=== PATIENT | male | born 1985 | race Caucasian/White ===

== ENCOUNTER 2018-11-29 09:33 | Emergency (ER) | payer SELFPAY ==
--- NOTE | 2018-11-29 10:09 | UC ---
Skin Complaint HPI - HPI Summary HPI Summary: 33 y/o male presents to the urgent care c/o a rash w/ itchiness all over his body, for the past 2 weeks. Pt reports he is visiting from [facility]. He staes he changed softener about 2 weeks ago and he thinks that is what caused his rash. He was taken Claritin PO for few days and stopped using the new Softerner and rash was improving. However, He is now visiting his parents and he washed his clothes w/ their Softerne and rash worsen w/ a lot of itchiness. Pt also c/o os sore throat w/ white spots in his tonsils for thepast 2 days. Pain is 2/10. Pt denies fever, difficultly breathing, SOB, chest pain, abdominal pain, N/V/d. - History of Current Complaint Chief Complaint: UCRash Time Seen by Provider: 11/29/18 10:08 Stated Complaint: RASH Hx Obtained From: Patient Onset/Duration: Gradual Onset, Lasting Weeks - 2 weeks, Still Present, Worse Since - 3 days w/ itchiness and a sore throat Skin Exposure Onset/Duration: Weeks Ago - 2 weeks pt change his detergent and diffuse rash started Timing: Constant Onset Severity: Mild Current Severity: Moderate Pain Intensity: 2 - sore throat Pain Scale Used: 0-10 Numeric Location: Diffuse - B/l arms arms and legs, lower back and pelvis and neck Character: Pruritus, Hives, Redness Aggravating Factor(s): Touch Alleviating Factor(s): Antihistamines Associated Signs & Symptoms: Positive: Rash - hives w/ itchiness in differents parts of his body. Negative: Fever, Chills, Drainage, Tenderness Related History: Possible Reaction to: Environmental Exposure - Allergy/Home Medications Allergies/Adverse Reactions: Allergies Allergy/AdvReac Type Severity Reaction Status Date / Time mint Allergy Rash Verified 11/29/18 09:49 Home Medications: Home Medications Loratadine [Claritin] 1 tab PO DAILY 11/29/18 [History Confirmed 11/29/18] lamoTRIgine [Lamictal] 200 mg PO DAILY 11/29/18 [History Confirmed 11/29/18] PMH/Surg Hx/FS Hx/Imm Hx Previously Healthy: Yes Psychological History: Bipolar Disorder - Surgical History Surgical History: None - Family History Known Family History: Positive: Hypertension, Diabetes - Social History Occupation: Employed Full-time Lives: With Family Alcohol Use: Rare Substance Use Type: None Smoking Status (MU): Never Smoked Tobacco Review of Systems All Other Systems Reviewed And Are Negative: Yes Constitutional: Positive: Negative Skin: Positive: Rash - scattered itchy hives on b/l arms and legs, lower back and pelvis and neck for the past 2 weeks Eyes: Positive: Negative ENT: Positive: Sore Throat - for the past 3 days Respiratory: Positive: Negative Cardiovascular: Positive: Negative Gastrointestinal: Positive: Negative Genitourinary: Positive: Negative Motor: Positive: Negative Neurovascular: Positive: Negative Musculoskeletal: Positive: Negative Neurological: Positive: Negative Psychological: Positive: Negative Is Patient Immunocompromised?: No Physical Exam - Summary Physical Exam Summary: Vital Signs Reviewed: Yes General: well appearing, well nourished male in no acute apparent pain distress , sitting comfortably on examining table Eye Exam: Normal Eyes: Positive: Conjunctiva Clear - PERRLA< EOMI, fundi grossly normal ENT: Positive: Normal ENT inspection, Hearing grossly normal, Pharynx w/ erythema and b/l tonsil enlargement w/ exudate, TMs normal Neck: Positive: Supple, Nontender, No Lymphadenopathy Respiratory: Positive: Chest non-tender, Lungs clear, Normal breath sounds, No respiratory distress Cardiovascular: Positive: RRR, No Murmur, Pulses Normal, Brisk Capillary Refill Abdomen Description: Positive: Nontender, No Organomegaly, Soft. Negative: CVA Tenderness (R), CVA Tenderness (L) Bowel Sounds: Positive: Present Musculoskeletal: Positive: Strength Intact, ROM Intact, No Edema Neurological: Positive: Alert, Muscle Tone Normal Psychological Exam: Normal Skin: Positive:Positive erythematous wheels and hives on B/l legs. b/l arms, lower back and pelvis and neck. w/ signs of excoriation. non tender to palpation, no swelling, no drainage observed. Triage Information Reviewed: Yes Vital Signs: Initial Vital Signs Temp 97.8 F 11/29/18 09:44 Pulse 66 11/29/18 09:44 Resp 11/29/18 09:44 BP 113/67 11/29/18 09:44 Pulse Ox 100 11/29/18 09:44 Course/Dx - Course Course Of Treatment: 33 y/o male presents to the urgent care c/o a rash w/ itchiness all over his body, for the past 2 weeks. Pt reports he is visiting from [facility]. He staes he changed softener about 2 weeks ago and he thinks that is what caused his rash. He was taken Claritin PO for few days and stopped using the new Softerner and rash was improving. However, He is now visiting his parents and he washed his clothes w/ their Softerne and rash worsen w/ a lot of itchiness. Pt also c/o os sore throat w/ white spots in his tonsils for the past 2 days. Pain is 2/10. Pt denies fever, difficultly breathing, SOB, chest pain, abdominal pain, N/V/d. Hx obtained. Pt w/ Positive erythematous wheels and hives on B/l legs. b/l arms, lower back and pelvis and neck. w/ signs of excoriation. non tender to palpation, no swelling, no drainage observed and also pharyngitis on examination. Rapid strep ordered: negative. Pt w/ contact dermatitis and viral pharyngitis. Pt Rx Prednisone PO taper dose, triamcinolone topical lotion, Benadryl PO as directed below to alleviate symptoms. D/C instructions explained. Pt advised if not improvement of symptoms to f/u w/ his PCP or wind turbine performance engineer DR Agarwal for further evaluation and treatment. Pt understood and agreed w/ plan of care and left the clinic ambulating and hemodynamically stable. - Differential Diagnoses - Skin Complaint Differential Diagnoses: Abscess, Contact Dermatitis, Local Allergic Reaction, MRSA, Poison Aniya, Tinea, Urticaria, Other - ptyriasis rocesea - Diagnoses Provider Diagnosis: Contact dermatitis Discharge - Sign-Out/Discharge Documenting (check all that apply): Patient Departure - d/C home All imaging exams completed and their final reports reviewed: No Studies - Discharge Plan Condition: Stable Disposition: HOME Prescriptions: diPHENhydraMINE PO* [Benadryl PO 25 MG TAB*] 25 mg PO TID PRN #30 tab PRN Reason: pruritus predniSONE TAB* [Deltasone 20 MG TAB*] 20 mg PO DAILY #11 tab Triamcinolone 0.1% CREAM(NF) [Kenalog Cream 0.1%(NF)] 1 applic TOPICAL BID #1 tube Patient Education Materials: Contact Dermatitis (DC) Referrals: Nato Epps MD [Primary Care Provider] - 3 Days Ashely Agarwal [Medical Doctor] - 3 Days Additional Instructions: 1-Please Start taking Prednisone PO taper dose as directed to alleviate rash 2- Take Benadryl PO to alleviate itchiness. Apply topical cream as directed. Avoid exposure to the sun. 3-If symptoms do not improve or worsen please f/u with your PCP or Double Cut Sawyer Dr Agarwal in 3 days for further evaluation and treatment. 4- If symptoms worsen and you develop SOB or difficulty breathing please go immediately to the Er for further management. 5-* Rapid Strep: negative - Billing Disposition and Condition Condition: STABLE Disposition: Home
== END 2018-11-29 10:49 | disposition home or self-care (01) ==
LOC: UCEAST 09:33
DX: L25.9 Unspecified contact dermatitis, unspecified cause (principal); F31.9 Bipolar disorder, unspecified
CPT/HCPCS: 87651; 99202; G0463